=== PATIENT | female | born 1955 | race African-American/Black ===

== ENCOUNTER 2023-07-18 04:13 | Emergency (ER) | payer SELFPAY ==
[~2023-07-18] VITALS: Ht 170.2 cm; Wt 100.0 kg
[2023-07-18 04:22] VITALS: BP 123/67; PULSE 75; RESP 16; O2SAT 97
[2023-07-18 05:20] VITALS: TEMP 97.5
[2023-07-18] MEDS: ACETAMINOPHEN 325MG TABLET PO ONE (05:20)
== END 2023-07-18 06:37 | disposition home or self-care (01) ==
LOC: ER 04:13
DX: S49.82XA Other specified injuries of left shoulder and upper arm, initial encounter (principal); I10 Essential (primary) hypertension; W06.XXXA Fall from bed, initial encounter; Y93.89 Activity, other specified; Y92.89 Other specified places as the place of occurrence of the external cause; Y99.8 Other external cause status
CPT/HCPCS: 73030; 99283; A4565